=== PATIENT | female | born 2000 ===

== ENCOUNTER → 2020-12-06 15:49 | Outpatient (CLI) | payer OTHER, SELFPAY ==
--- NOTE | 2020-12-06 15:52 | DI.US.S_ITS ---
PROCEDURE: US PELVIC COMPLETE INDICATIONS: CHECK IUD PLACEMENT TECHNIQUE: Real-time scanning was performed of the pelvic organs, with image documentation. Additional endovaginal scanning was necessary due to incomplete visualization of the adnexal and endometrial structures by transabdominal scanning. COMPARISON: None. FINDINGS: Uterus: Uterus is normal in size at 7.4 x 3 x 5.3 cm. The endometrium measures 5 mm in combined thickness. The IUD is seen within the lower uterine segment and the cervix. Ovaries: The right ovary measures 3.9 x 3.4 x 3.8 cm. The left ovary measures 3.6 x 2.2 x 1.8 cm. The ovaries have a normal sonographic appearance. There is a cystic appearing adnexal mass seen slightly to the left of the midline within the pelvic cul-de-sac with an 8 mm focus of nodularity along the wall of the cyst, which measures 5 x 3.3 x 4.8 cm. Other: No pathologic free abdominal or pelvic fluid. IMPRESSION: Abnormally inferiorly positioned IUD seen within the lower uterine segment and cervix. And abnormal adnexal cyst with mural nodularity can be seen within the pelvic cul-de-sac. to the left of the midline. If it would be clinically appropriate, a followup pelvic ultrasound could be considered in 6 weeks to assure resolution/ improvement. Dictated by: James Rodriguez M.D. on 12/06/2020 at 15:59 Approved by: James Rodriguez M.D. on 12/06/2020 at 16:02
== END ==
PROVIDERS: Referring Provider Obstetrics & Gynecology; Visit Provider Obstetrics & Gynecology
DX: Z30.431 Encounter for routine checking of intrauterine contraceptive device (principal); T83.32XA Displacement of intrauterine contraceptive device, initial encounter; N94.89 Other specified conditions associated with female genital organs and menstrual cycle
CPT/HCPCS: 76830; 76856